=== PATIENT | female | born 2000 | race Caucasian/White ===

== ENCOUNTER → 2020-03-14 | Outpatient (CLI) | payer BC, OTHER ==
--- NOTE | 2020-03-14 16:09 | RAD ---
EXAM DESCRIPTION: Pelvis CLINICAL HISTORY: 19 years Female, HIP PAIN LEFT COMPARISON: None. TECHNIQUE: Single view radiograph of the pelvis. IMPRESSION: Partially obscured sacrum and coccyx by overlying bowel. No acute displaced fracture. No dislocation. No appreciable arthrosis of the hip. Intact pubic joint. Electronically signed by: Jake Perez MD 03/14/2020 4:08 PM CDT
--- NOTE | 2020-03-15 06:33 | RAD ---
EXAM DESCRIPTION: Knee,Left Complete CLINICAL HISTORY: PAIN IN LEFT KNEE COMPARISON: May 09, 2012 FINDINGS: 4 views of the left knee show no acute fracture, focal bone destruction, or joint dislocation. Patella sunrise view shows well-corticated osseous body medial to the patella increased size of previous exam. No significant patellofemoral compartment joint space narrowing. Soft tissues are unremarkable. 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 Otherwise no acute findings on left knee series. Electronically signed by: Valeriano Schilling MD 03/15/2020 6:32 AM CDT
== END ==
LOC: RAD 08:39
PROVIDERS: ATTEND Orthopaedic Surgery
DX: M25.9 Joint disorder, unspecified (principal); M25.562 Pain in left knee; M25.552 Pain in left hip